=== PATIENT | female | born 1960 | race Caucasian/White ===

== ENCOUNTER 2019-01-31 10:06 | Emergency (ER) | payer OTHER ==
[~2019-01-31] VITALS: Ht 162.6 cm; Wt 61.2 kg
[~2019-01-31 10:06] MED LIST: CALCIUM 500 +1 EAC5 PO; DARVOCET-N 1001 EACH PO; EXCEDRIN CAPLE1 EACH PO; FIORICET; HYZAAR PO; LEXAPRO20 MG; LISINOPRIL-HCT1 EAC1 PO; LYSINE; MOBIC; OMEPRAZOLE40 MG PO; PHENERGAN 25 MG25 M1 PO; TRAMADOL 50 MG50 MG PO; VITAMIN B
[2019-01-31] MEDS ORDERED: LIPITOR 20 MG T20 M1 PO (10:17)
[2019-01-31 10:48] LABS: ABSOLUTE BASOPHILS 0.1 thou/uL (0.0-0.2); ABSOLUTE EOSINOPHILS 0.1 thou/uL (0.0-0.7); ABSOLUTE LYMPHOCYTES 1.4 thou/uL (0.8-5.3); ABSOLUTE MONOCYTES 0.4 thou/uL (0.0-1.2); BASOPHILS 1.6 %; EOSINOPHILS 2.4 %; HEMATOCRIT 38.7 % (37.0-47.0); HEMOGLOBIN 13.2 gm/dL (12.0-15.0); LYMPHOCYTES 28.2 %; MCH 30.7 pg (26.0-34.0); MCHC 34.1 g/dL (28.0-37.0); MCV 90.1 fL (80.0-100.0); MONOCYTES 7.9 %; MPV 8.1 fl. (7.2-11.1); NUCLEATED RBCS 0 /100WBC; PLATELET COUNT* 181 thou/uL (150-400); POLYS 59.9 %; RDW-CV 12.3 % (10.5-14.5)
[2019-01-31 10:57] LABS: PROTIME 10.2 Seconds (9.20-11.50)
[2019-01-31 11:03] LABS: ANION GAP 7 mmol/L (7-16); BUN 18 mg/dL (7-18); CHLORIDE 107 mmol/L (98-107); CO2 29 mmol/L (21-32); CREATININE 0.9 mg/dL (0.6-1.3); GLUCOSE 106 mg/dL (70-99); POTASSIUM 3.4 mmol/L (3.5-5.1); SODIUM 143 mmol/L (136-145)
[2019-01-31 11:07] LABS: ALKALINE PHOSPHATASE 81 U/L (46-116); SGOT 26 U/L (15-37); SGPT 34 U/L (30-65); TOTAL BILIRUBIN 0.8 mg/dL (<0.1-1.0); TOTAL PROTEIN 7.2 g/dL (6.4-8.2); TROPONIN-I LEVEL <0.06 ng/mL (<0.06)
--- NOTE | 2019-01-31 16:48 | EKG ---
[place] [address] ELECTROCARDIOGRAM REPORT Name: MELONIE DAVIDSON Room: [facility]#: [id number] Admission: 01/31/19 Attend Phys: Discharge: Date of : 62 Report #: [id number] THIS REPORT FOR: //name// [facility] ED Test Date: 2019-01-31 Test Time: 10:33:21 Pat Name: MELONIE DAVIDSON Department: Room: Gender: F [employer]: : 1960 Requested By: Shayan Ramesh Order Number: [id number] MD: Luis Martin Measurements Intervals [place] Rate: 71 P: 50 TX: 137 QRS: -11 QRSD: 103 T: 37 QT: 413 QTc: 449 Interpretive Statements Sinus rhythm Baseline wander in lead(s) V2,V4 Compared to ECG 06/06/2011 19:03:45 No significant changes Electronically Signed On 01-31-2019 16:47:59 CDT by Luis Martin [email or web address] <ELECTRONICALLY SIGNED> By: Luis Martin MD, [facility] 01/31/19 1647 D: [id number] Luis Martin MD, FACC /EPI
[2019-01-31] MEDS ORDERED: XANAX 0.5 MG0.5 M1 PO (17:27)
[2019-01-31 17:30] VITALS: BP 114/65
== END 2019-01-31 17:31 | disposition home or self-care (01) ==
LOC: M.ERS 10:06
PROVIDERS: Emergency Medicine
DX: F41.0 Panic disorder [episodic paroxysmal anxiety] (principal); G43.909 Migraine, unspecified, not intractable, without status migrainosus; I10 Essential (primary) hypertension; Z98.890 Other specified postprocedural states; Z88.5 Allergy status to narcotic agent; Z88.2 Allergy status to sulfonamides; Z87.891 Personal history of nicotine dependence

== ENCOUNTER → 2019-06-27 | Outpatient (CLI) | payer OTHER ==
[~2019-06-27] MED LIST changes: +LIPITOR 20 MG T20 M1 PO; +XANAX 0.5 MG0.5 M1 PO
== END ==
LOC: M.RAD 06-25 14:20
DX: Z12.31 Encounter for screening mammogram for malignant neoplasm of breast (principal)